=== PATIENT | female | born 1995 | race Caucasian/White ===

== ENCOUNTER 2020-11-24 07:54 | Emergency (ER) | payer OTHER, SELFPAY ==
--- NOTE | ~2020-11-24 | US_ITS ---
EXAMINATION: US OB <= 14 weeks fetus EXAM DATE: 11/24/2020 09:00 INDICATION: , vaginal bleeding. 2nd trimester. TECHNIQUE: Pelvic obstetrical transabdominal sonogram was performed by a technologist. There are mu ltiple grayscale and Doppler images available for interpretation. There are no earlier studies of th is gestation for comparison. FINDINGS: There is intrauterine gestation, pole in transverse presentation with heart rate conf irmed at 139 beats per minute. The 8.8 cm crown-rump length corresponds to estimated gestational age by ultrasound of 14 weeks 5 days, estimated date of confinement 05/20/2021. Difficult to confirm the location of the chorion and placenta, but there is no sonolucent to suggest retroplacental hemorrhag e. The ovaries were not identified. IMPRESSION: Live intrauterine gestation age by ultrasound 14 weeks 5 days. No sonographic evidence o f retroplacental hemorrhage. Reviewed, dictated and finalized at location A. SYSTEMS ADMINISTRATOR IMPRESSION: Live intrauterine gestation age by ultrasound 14 weeks 5 days. No sonographic evidence of retroplacental hemorrhage.
[2020-11-24 08:04] VITALS: BP 113/74; PULSE 82; RESP 18; TEMP 36.6; O2SAT 99
--- NOTE | 2020-11-24 08:08 | ED.PREGNANCY ---
HPI - General Chief complaint: Vaginal Bleeding Stated complaint: 14 wks with vag bleeding Time Seen by Provider: 11/24/20 07:59 Source: patient Mode of arrival: ambulatory Limitations: no limitations History of Present Illness HPI Narrative: This is a 25 year old female approximately 14 weeks GA who presents for evaluation of abnormal vaginal bleeding. She woke up this morning and she noticed blood in her underwear. She also noticed dark blood in the toilet when she went to the restroom. she denies passing clots. She denies abdominal pain or cramping and she does reports some mild lower back pain. She has some nausea and vomiting during her . She reports she had an US done yesterday which showed 1 IUP. She takes aspirin 81 mg. Related Data Home Medications Medication Instructions Recorded Confirmed albuterol sulfate [ProAir HFA] 1 inh INHALATION QID PRN 10/21/19 10/21/19 bupropion HCl 150 mg PO QAM 10/21/19 10/21/19 ergocalciferol (vitamin D2) 50,000 unit PO 2XW 10/21/19 10/21/19 levonorgestrel-ethinyl estrad 1 tablet PO DAILY 10/21/19 10/21/19 [Larissia] Allergies Allergy/AdvReac Type Severity Reaction Status Date / Time No Known Allergies Allergy Verified 11/24/20 08:00 Review of Systems Review of Systems: All systems reviewed & are unremarkable except as noted in HPI and below Constitutional: Constitutional: Denies chills and Denies fever(s) Gastrointestinal: Gastrointestinal: Denies abdominal pain, Reports nausea and Reports vomiting Genitourinary: Genitourinary: Reports abnormal vaginal bleeding Musculoskeletal: Musculoskeletal: Reports back pain [facility] Past Medical History Medical History (Updated 11/24/20 @ 10:19 by Maria Antonia Walls MD) GERD (gastroesophageal reflux disease) History of gestational diabetes Surgical History Surgical History H/O wisdom tooth extraction History of 05/2019 Family History Family History Grandparent Cerebrovascular accident Hypertension Lung cancer Malignant neoplasm of prostate Emphysema lung Gallbladder cancer Social History Social History Smoking status: Never smoker Alcohol intake: current Additional occupation/education comments: Sales Gender identity (if verbalized by the patient): Female Exam Const: General: no acute distress and alert Orientation/consciousness: patient oriented x3 Eyes: EOM: EOMs intact bilaterally Resp: Effort & Inspection: normal respiratory effort and no retractions Cardio: Rate: regular rate Rhythm: regular rhythm Heart sounds: no murmurs GI: GI Palp: Yes Soft to palpation, No Tenderness to palpation present (GI) and No Guarding due to palpation present (GI) Auscultation: normal bowel sounds : Other: dark brown clots in vaginal, Neuro: General: patient oriented x3, moves all extremities and CN's II-XI intact bilaterally Course Reevaluation(s) Reevaluation #1: I discussed ultrasound and discharge instruction with patient. Date: 11/24/20 Time: 10:16 Consultations Consultation #1: I spoke with Dr. Christine who is television repairer for Dr. Yan. She recommends patient to stop taking aspirin for 1 week and pelvic rest. Patient should follow up in 1 week. Date: 11/24/20 Time: 10:08 Vital Signs Vital signs: Vital Signs Temperature 97.9 F 11/24/20 08:04 Pulse Rate 82 11/24/20 08:04 Respiratory Rate 18 11/24/20 08:04 Blood Pressure 113/74 11/24/20 08:04 Pulse Oximetry 99 11/24/20 08:04 Temperature 97.9 F 11/24/20 08:04 Pulse Rate 75 11/24/20 10:28 Respiratory Rate 18 11/24/20 10:28 Blood Pressure 126/67 11/24/20 10:28 Pulse Oximetry 99 11/24/20 10:28 MDM - OB/Uterine Contractions Lab Data Attestation: I reviewed the patient's lab resul
[2020-11-24 08:32] LABS: Basophils Percent Auto 0.3 % (0.2-1.2); Eosinophils Absolute Auto 0.2 K/mm3 (0-0.3); Hematocrit 38.2 % (37.0-47.0); Immature Granulocyte Absolute 0.02 K/mm3 (0.00-0.031); Immature Granulocyte Percent A 0.3 % (0-0.5); Lymphocytes Absolute Auto 2.24 K/mm3 (0.9-3.2); Lymphocytes Percent Auto 28.3 % (18.3-44.2); Mean Platelet Volume 11.7 fl (7.4-10.4); Monocytes Absolute Auto 0.4 K/mm3 (0.1-0.6); Monocytes Percent Auto 5.2 % (2.6-8.5); Neutrophils Absolute Auto 5.1 K/mm3 (1.3-6.7); Neutrophils Percent Auto 63.9 % (45.5-73.1); Platelet Count Result 234 k/mm3 (150-375); Red Blood Count 4.34 M/mm3 (4.2-5.4); Red Cell Distribution Width 12.4 % (11.5-14.5); White Blood Count 7.9 K/mm3 (4.5-10.0)
[2020-11-24 08:36] LABS: Add Urine Microscopic? YES; Appearance Urine Cloudy (Clear); Bacteria Urine Trace /hpf; Bilirubin Urine Negative (Negative); Blood Urine 3+ (Negative); Color Urine Yellow (Yellow); Glucose Urine UA Negative (Negative); Ketones Urine Negative (Negative); Leukocyte Esterase Ur Trace LEU/UL (Negative); Mucus Urine Heavy /lpf; Nitrate Urine Negative (Negative); Protein Urine 1+ mg/dL (Negative); Squamous Epithelial Cell Urine Many /hpf (Few); Urobilinogen Urine Negative mg/dL (<2.0)
[2020-11-24 10:28] VITALS: BP 126/67; PULSE 75; RESP 18; O2SAT 99
== END 2020-11-24 10:33 | disposition home or self-care (01) ==
PROVIDERS: Emergency Provider General Practice
DX: O20.9 Hemorrhage in early pregnancy, unspecified (principal); O99.612 Diseases of the digestive system complicating pregnancy, second trimester; K21.9 Gastro-esophageal reflux disease without esophagitis; Z79.82 Long term (current) use of aspirin; Z3A.14 14 weeks gestation of pregnancy; R82.998 Other abnormal findings in urine
CPT/HCPCS: 36415; 76801; 81001; 84702; 85025; 85461; 87077; 87086; 87088; 99284

== ENCOUNTER → 2020-12-28 15:55 | Outpatient (CLI) | payer OTHER, SELFPAY ==
--- NOTE | ~2020-12-28 | US_ITS ---
EXAMINATION: US OB >= 14 weeks Fetus DATE: 12/28/2020 16:33 INDICATION: Second trimester anatomic survey TECHNIQUE: Real-time ultrasound of the pelvis was performed. COMPARISON: 11/24/2020 FINDINGS: There is a single living fetus in breech presentation. The placenta is posterior and covering the int ernal cervical os. heart rate is 147 beats per minute (bpm). cardiac activity and movement are noted. The amniotic fluid index is subjectively normal. The following anatomy was identified as normal: 4 chamber heart 3 vessel cord cord insertion kidneys urinary bladder stomach spine diaphragm ventricles cisterna magna cerebellum The following biometric data were obtained: Biparietal diameter (BPD): 4.3 cm; head circumference (HC): 16.3 cm; abdominal circumference (AC): 13 .6 cm; femur length (FL): 2.7 cm. These measurements are concordant. Estimated weight is 256 g +/- 38 g, which correlates with the 11th percentile when 05/20/2021 is used as estimated date of delivery. As single measurements, these parameters are each equal to the following estimated gestational ages w ith ranges of +/- 2 standard deviations: BPD: 19 weeks 1 days ( 17 weeks 3 days - 20 weeks 6 days). HC: 19 weeks 1 days ( 17 weeks 4 days - 20 weeks 4 days). AC: 19 weeks 1 days ( 17 weeks 0 days - 21 weeks 1 days). FL: 18 weeks 2 days ( 16 weeks 3 days - 20 weeks 1 days). estimated gestational age based solely on measurements from this exam is 19 weeks 0 days +/- 1 weeks 2 days. IMPRESSION: 1. Single living fetus in breech presentation. 2. Estimated weight is 256 g +/- 38 g, which correlates with the 11th percentile when 05/20/2021 is used as estimated date of delivery. 3. Complete placenta previa. Reviewed, dictated and finalized at location A. IMPRESSION: 1. Single living fetus in breech presentation. 2. Estimated weight is 256 g +/- 38 g, which correlates with the 11th per centile when 05/20/2021 is used as estimated date of delivery. 3. Complete placenta previa.
== END ==
PROVIDERS: Visit Provider Obstetrics & Gynecology Gynecology
DX: Z36.9 Encounter for antenatal screening, unspecified (principal); O44.02 Complete placenta previa NOS or without hemorrhage, second trimester
CPT/HCPCS: 76805

== ENCOUNTER → 2021-01-25 15:40 | Outpatient (CLI) | payer OTHER, SELFPAY ==
--- NOTE | ~2021-01-25 | US_ITS ---
. EXAMINATION: US OB limited DATE: 01/25/2021 16:01 INDICATION: Low lying placenta. Estimated gestational age of 22 weeks and 4 days. TECHNIQUE: Real-time ultrasound of the pelvis was performed. COMPARISON: Ultrasound 12/28/2020 FINDINGS: There is a single fetus in transverse lie. The placenta is covering the cervical os. heart rat e is 139 beats per minute (bpm). The amniotic fluid volume is subjectively normal. IMPRESSION: 1. Single living fetus in transverse lie. 2. Placenta previa. Reviewed, dictated and finalized at location A.
== END ==
PROVIDERS: Visit Provider Obstetrics & Gynecology Gynecology
DX: O44.40 Low lying placenta NOS or without hemorrhage, unspecified trimester (principal); Z3A.00 Weeks of gestation of pregnancy not specified
CPT/HCPCS: 76815

== ENCOUNTER → 2021-02-17 10:50 | Outpatient (CLI) | payer OTHER, SELFPAY ==
--- NOTE | ~2021-02-17 | US_ITS ---
EXAMINATION: US OB follow up DATE: 02/17/2021 11:41 INDICATION: Placenta previa. Expected size greater than expected for estimated gestational age at the transition from the second and third trimester . TECHNIQUE: Real-time ultrasound of the pelvis was performed. The interpreting radiologist was not pre sent for the study. COMPARISON: 01/25/2021 FINDINGS: There is a single living fetus in transverse lie. The placenta is posterior and is low lying extendin g at least the margin of if not across the region of the internal cervical os. heart rate is 13 6 beats per minute (bpm). The amniotic fluid index is 13.0 cm, which is normal. The following biometric data were obtained: BPD: 6.5 cm -> 26 weeks 3 days Head circumference: 24.1 cm -> 26 weeks 1 days Abdominal circumference: 23.2 cm -> 27 weeks 4 days Femur length: 4.9 cm -> 26 weeks 2 days These measurements are concordant. Head circumference to abdominal circumference ratio: 1.04 (normal range 1.05-1.22). Estimated weight: 1001 g (+/-) 150 g or 2 lbs. 3 oz. (+/-) 5 oz. IMPRESSION: 1. Single living fetus in transverse lie with heart rate of 136 bpm. 2. Normal amniotic fluid index of 13.0 cm. 3. Estimated weight is 40th percentile by Hadlock criteria when 05/20/2021 is used as the estima anh date of delivery (PATRICK). Please correlate with clinical information or earlier ultrasounds for mos t accurate PATRICK. 4. Posterior placenta which continues to appear low-lying with the inferior margin extending at least to the margin of if not across the region of the internal cervical os. Reviewed, dictated and finalized at location A. IMPRESSION: 1. Single living fetus in transverse lie with heart rate of 136 bpm. 2. Normal amniotic fluid index of 13.0 cm. 3. Estimated weight is 40th percentile by Hadlock criteria when 05/20/2021 is used as the estimated date of delivery (PATRICK). Please correlate with clinica l information or earlier ultrasounds for most accurate PATRICK. 4. Posterior placenta which continues to appear low-lying with the inferior mar gin extending at least to the margin of if not across the region of the interna l cervical os.
== END ==
PROVIDERS: Visit Provider Nurse Practitioner
DX: O36.63X0 Maternal care for excessive fetal growth, third trimester, not applicable or unspecified (principal); Z3A.00 Weeks of gestation of pregnancy not specified
CPT/HCPCS: 76816

== ENCOUNTER → 2021-03-19 10:55 | Outpatient (CLI) | payer OTHER, SELFPAY ==
--- NOTE | ~2021-03-19 | US_ITS ---
US OB limited 03/19/2021 11:19 Indication: Low lying placenta Procedure: High-resolution Limited obstetrical ultrasound Comparison: 02/17/2021 Findings: There is a single living intrauterine in breech presentation. heart rate is 127 BPM. Amniotic fluid is subjectively normal. Placenta is posterior measuring 0.7 cm to the cervix . Impression: 1: Low-lying posterior placenta measuring 0.7 cm to the cervix. Reviewed, dictated and finalized at location B. Impression: 1: Low-lying posterior placenta measuring 0.7 cm to the cervix.
== END ==
PROVIDERS: Visit Provider Obstetrics & Gynecology Gynecology
DX: O44.10 Complete placenta previa with hemorrhage, unspecified trimester (principal); Z3A.00 Weeks of gestation of pregnancy not specified
CPT/HCPCS: 76815

== ENCOUNTER → 2021-04-12 10:58 | Outpatient (CLI) | payer OTHER, SELFPAY ==
--- NOTE | ~2021-04-12 | US_ITS ---
EXAMINATION: US OB limited DATE: 04/12/2021 11:24 INDICATION: Low-lying placenta, third trimester TECHNIQUE: Real-time ultrasound of the pelvis was performed. The interpreting radiologist was not pre sent for the study. COMPARISON: 03/19/2021 FINDINGS: There is a single living fetus in vertex presentation. The placenta is posterior and 1.7 cm from the internal cervical os. cardiac activity and movement are noted. heart rate is 138 beats per minute (bpm). The amniotic fluid index is subjectively normal. IMPRESSION: 1. Single living fetus in vertex presentation. 2. Persistent low-lying placenta. Reviewed, dictated and finalized at location B.
== END ==
PROVIDERS: Visit Provider Obstetrics & Gynecology
DX: O44.10 Complete placenta previa with hemorrhage, unspecified trimester (principal); Z3A.00 Weeks of gestation of pregnancy not specified
CPT/HCPCS: 76815

== ENCOUNTER 2021-05-20 10:43 | Outpatient (CLI) | payer OTHER, SELFPAY ==
[2021-05-20 11:52] LABS: Hematocrit 35.3 % (37.0-47.0); Hemoglobin 11.2 g/dL (12.0-15.0); Mean Corpuscular HGB Conc 31.7 g/dl (32-36); Mean Corpuscular Hemoglobin 28.6 pg (26-34); Mean Corpuscular Volume 90.3 fl (80-100); Mean Platelet Volume 11.8 fl (7.4-10.4); Platelet Count Result 163 k/mm3 (150-375); Red Blood Count 3.91 M/mm3 (4.2-5.4); Red Cell Distribution Width 14.2 % (11.5-14.5); White Blood Count 8.1 K/mm3 (4.5-10.0)
[2021-05-21 07:40] LABS: Rapid Plasma Reagin Non-Reactive (NonReactive)
== END 2021-05-20 10:44 | disposition home or self-care (01) ==
PROVIDERS: Visit Provider Obstetrics & Gynecology Gynecology
DX: Z34.93 Encounter for supervision of normal pregnancy, unspecified, third trimester (principal); Z3A.00 Weeks of gestation of pregnancy not specified
CPT/HCPCS: 36415; 85027; 86592; 86850; 86900; 86901

== ENCOUNTER 2021-05-21 05:22 | Inpatient (IN) | payer OTHER, SELFPAY ==
--- NOTE | 2021-04-28 14:56 | PC.NURSE ---
VERIFIED WITH OR SCHEDULE AND PATIENT--C/S ON 05/21/21 AT 0730 PATIENT GIVEN REQUISITION FOR LAB DRAW ON 05/20/21
--- NOTE | 2021-05-20 13:21 | PM.IMHP ---
H&P: HPI History of Present Illness Date/Time: 05/20/21 13:21 25 yo A1 @39 wks here for repeat csection. has been complicated by initial previa and persistent low placenta. labs. A+; HIV -: RPR-; HepBSAg -; GBS+; Rubella immune. Chief Complaint: scheduled csection Review of Systems Review of Systems: +FM; no bleeding; Rare contractions Musculoskeletal: Musculoskeletal: Reports back pain [facility] Past Medical History Medical History (Updated 05/20/21 @ 13:27 by Katlin Yan MD) Anxiety Asthma GERD (gastroesophageal reflux disease) History of gestational diabetes Surgical History Surgical History (Updated 05/20/21 @ 13:27 by Katlin Yan MD) H/O wisdom tooth extraction History of 05/2019 Family History Family History Grandparent Cerebrovascular accident Hypertension Lung cancer Malignant neoplasm of prostate Emphysema lung Gallbladder cancer Social History Social History Smoking status: Never smoker Alcohol intake: current Alcohol use details: Socially Substance use: never Additional occupation/education comments: Sales Gender identity (if verbalized by the patient): Female Spiritual care concerns: No Meds Home Medications and Allergies Home Medications Medication Instructions Recorded Confirmed Type albuterol sulfate [ProAir HFA] 1 inh INHALATION QID PRN 10/21/19 10/21/19 History ergocalciferol (vitamin D2) 50,000 unit PO WEEKLY 10/21/19 10/21/19 History ferrous sulfate 325 mg PO DAILY 04/28/21 04/28/21 History prenat.vits,gino,eby-hxdy-vzmwy 1 tablet PO DAILY 04/28/21 04/28/21 History [ #2] Allergies Allergy/AdvReac Type Severity Reaction Status Date / Time No Known Allergies Allergy Verified 04/28/21 14:40 Exam Const: General: healthy appearing and alert GI: Inspection: other (Gravid ) GI Palp: Yes Other GI palpation findings present (Fundal ht 44 cm; FHTs 140's) Extrem: General: pedal edema Assessment and Plan Assessment and plan (1) 39 weeks gestation of : Code(s): Z3A.39 - 39 weeks gestation of Status: Acute (2) History of : Code(s): Z98.891 - History of uterine scar from previous surgery Status: Acute Assessment and Plan: plan repeat LTCS
--- NOTE | 2021-05-20 13:27 | P.PNAN_ITS ---
Anes - Initial Pre Proc Eval Procedure: Operation Date: 05/21/21 07:30 Proposed Procedures p Repeat Section - Katlin Yan MD Date/Time: 05/20/21 13:27 Surgeon: Katlin Yan MD Pre Op Diagnosis: Repeat Patient Data Age: 25 Gender: F Height: Weight: Allergies Allergy/AdvReac Type Severity Reaction Status Date / Time No Known Allergies Allergy Verified 04/28/21 14:40 Home Medications Medication Instructions Recorded Confirmed Type albuterol sulfate [ProAir HFA] 1 inh INHALATION QID PRN 10/21/19 05/21/21 History ergocalciferol (vitamin D2) 50,000 unit PO WEEKLY 10/21/19 05/21/21 History ferrous sulfate 325 mg PO DAILY 04/28/21 05/21/21 History prenat.vits,gino,gff-mcah-vnwmn 1 tablet PO DAILY 04/28/21 05/21/21 History [ #2] Patient hx anesthesia problems: none Family hx anesthesia problems: none [facility] Past Medical History Medical History (Updated 05/20/21 @ 13:27 by Katlin Yan MD) Anxiety Asthma GERD (gastroesophageal reflux disease) History of gestational diabetes Surgical History Surgical History (Updated 05/20/21 @ 13:27 by Katlin Yan MD) H/O wisdom tooth extraction History of 05/2019 Family History Family History Grandparent Cerebrovascular accident Hypertension Lung cancer Malignant neoplasm of prostate Emphysema lung Gallbladder cancer Social History Social History Smoking status: Never smoker Alcohol intake: current Alcohol use details: Socially Substance use: never Additional occupation/education comments: Sales Gender identity (if verbalized by the patient): Female Spiritual care concerns: No Anes - Eval Final PreProcedure Day of Procedure 05/20/21 13:27 Patient weight: normal Heart: regular rate and rhythm Lungs: clear to auscultation and normal air movement Airway: Mallampati scale class III Neurological: alert and oriented Last oral intake: >/= 8 hours ASA classification: III Emergent: no Anesthetic plan: proceed Anesthesia type and monitoring: regional spinal and standard monitoring Informed Consent: The patient's anesthetic plan and its attendant risks and benefits were discussed with the patient/family/POA. Questions were solicited and answers provided to the satisfaction of the patient/family/POA.
[2021-05-21] VITALS (52 sets, daily range): BP systolic 88–133; BP diastolic 42–109; PULSE 58–135; RESP 15–16; TEMP 36.1–36.6; O2SAT 98–100; BMI 45.3
--- NOTE | 2021-05-21 06:21 | LDADM ---
This patient, Frieda Mercer, was admitted to Labor/Delivery/Recovery 120 on 05/21/21 at 05:22. Plans for labor, pain management and were discussed with patient. Patient/family oriented to hospital policies and general routines including ID bracelet, bed and alarms, visiting hours, pain management, procedures, bathroom and other care routines, personal items, smoking policy, room service/diet and guest tray routines, security routines, and visiting hours. Patient/Family are encouraged to report perceived risks to care and to ask questions if they do not understand what they are told or what they should do. See OBIX for further documentation.
[2021-05-21] MEDS: LACTATED RINGERS 1,000 ML 125 ML IV CONT ×2 (06:45→11:21)
--- NOTE | 2021-05-21 07:16 | WPDHPUPDATE1 ---
History and Physical Update Update Date/Time: 05/21/21 07:16 History and Physical has been reviewed, including an updated exam of the patient. There are NO changes in the patient's condition. Risks, benefits, and alternatives have been discussed and questions answered. Patient agrees to proceed with procedure.
[2021-05-21] MEDS: ceFAZolin 2 GM/D5W 50 ML 2 GM/50 ML BAG IVPB (12:08)
[2021-05-21] MEDS: KETOROLAC 30 MG/ML VIAL (*BKC) IV PUSH ×2 (12:48→19:30)
--- NOTE | 2021-05-21 12:55 | P.OP_ITS ---
Procedure Note - Detailed Date of Procedure 05/21/21 Pre-op Diagnosis Repeat IUP 39 wk Post-op Diagnosis same Procedure Performed Repeat low transverse section Surgeon Katlin Yan MD Anesthesia spinal Findings female infant 8lb 11oz with Apgars 9 and 9 normal-appearing tubes ovaries and uterus Description of Procedure the patient is taken to the operating room and placed under spinal anesthesia in the dorsal supine position with a leftward tilt. She was prepped and draped in the usual sterile fashion.Once anesthesia was deemed adequate, a Pfannenstiel skin incision is made with a scalpel and carried down to the underlying layer of fascia which was nicked in the midline. The fascia is extended laterally using Clemens scissors. Ochsner was used to tent the fascia which was then dissected off using sharp and blunt dissection. The rectus muscles are in the midline and the peritoneum tented and entered with Metzenbaum. The vesicouterine peritoneum was tented and entered with Metzenbaum and extended laterally. The bladder flap was created using blunt traction.The Tommie O retractors placed. The lower uterine segment incised in a transverse fashion with a scalpel and extended laterally using blunt traction. Membranes are ruptured and clear fluid is noted. The infant is delivered from the assistant professor of art applied fundal pressure. The cord is clamped and cut the infant handed to the waiting nursery nurse. The uterine incision is grasped with Allis clamps at the left angle due to large blood vessel and ring forceps on the lower edge. The uterine incision was closed using 0 Monocryl in a running locked fashion. Same suture was used to imbricate. Good hemostasis is noted. The cul-de-sac and gutters are irrigated and the ovaries and tubes inspected. The uterine incision was again inspected and noted to be hemostatic. The Tommie O retractor was removed. Fascia was closed using 0 Vicryl in a running fashion. Subcutaneous tissues are irrigated made hemostatic using Bovie cautery. Skin is closed using 4-0 Vicryl in a subcuticular fashion. Dermaflex placed over the incision. Sponge, needle, and instrument counts are correct per the OR staff. Patient was given 3g of Ancef prior to incision. Estimated Blood Loss 625 Drains Yes (moore) Packing No Pathology none sent Complications No immediate complications Condition stable Disposition floor
--- NOTE | 2021-05-21 13:00 | PM.OBDSVD ---
DS: Admitting Diagnosis Admitting Diagnosis repeat LTCS 39 wk IUP DS: Discharge Diagnosis Discharge Diagnosis (1) History of : Code(s): Z98.891 - History of uterine scar from previous surgery Status: Acute (2) 39 weeks gestation of : Code(s): Z3A.39 - 39 weeks gestation of Status: Acute (3) delivery delivered: Code(s): O82 - Encounter for delivery without indication Status: Acute OB - DS: Summary OB Procedures : Ultrasound OB Procedures Intrapartum: low cervical, transverse OB Procedures: : None Peripartum Data Infant Delivery Method: Section Procedures: Procedures Operation Date: 05/21/21 07:30 <No data on this case meets the specified criteria> complications: none Status at Discharge Functional status at discharge: independent ambulation Overall status at discharge: patient is progressing back to baseline Time Spent with Patient Time attestation: Total time spent providing and/or coordinating discharge services: Discharge Plan Discharge Attending physician on discharge: Katlin Yan Discharging Clinician: Katlin Yan Anticipated Discharge Date/Time: 05/24/21 13:00 Patient Disposition: Home, Self-Care Activity: may shower, may drive after 2 weeks and pelvic rest Diet: regular Wound Care Instructions: incision open to air Patient Instructions: Antibiotic Form Stand Alone Forms: General Discharge Information Follow-up/Referrals: Katlin Yan MD [Physician] - 1 Week (and 6 wk) Discharge Medications: New hydrocodone-acetaminophen 5-325 mg Tablet 1 tablet PO Q3H PRN (Reason: Moderate Pain (4-6)) Qty: 30 RF: 0 norethindrone (contraceptive) 0.35 mg tablet 0.35 mg PO DAILY Qty: 84 RF: 3 Continued ergocalciferol (vitamin D2) 1,250 mcg (50,000 unit) capsule 50,000 unit PO WEEKLY RF: 0 albuterol sulfate [ProAir HFA] 90 mcg/actuation Hfa Aerosol Inhaler 1 inh INHALATION QID PRN (Reason: Shortness Of Breath Or Wheezing) RF: 0 ferrous sulfate 325 mg (65 mg iron) Tablet 325 mg PO DAILY RF: 0 #2 Tablet 1 tablet PO DAILY RF: 0 Date of admission: 05/21/21 05:22 Primary Care Provider: PHYSICIAN,AGRICULTURE SALES ACCOUNT MANAGER Admitting Provider: Katlin Yan Attending physician on admission: Katlin Yan Condition: Stable
--- NOTE | 2021-05-21 14:25 | PC.NURSE ---
Nursery RN requested assist with feeding. Mother voices concerns first had a tongue tie and unable to latch. is able to freely thrust tongue past gum ridge and flange both lips. Assisted mother will pillows for positioning/alignment due to C/S. Reviewed infant feeding cues, frequencies, duration of feedings, feeding elimination flow sheet, and signs of adequate intake. Demonstrated stimulation techniques to wake infant for feeding. Assisted with infant to breast. Reviewed positioning/alignment in football, holding breast in ?C? hold and guided asymmetrical latch on. Discussed rational for each. able to latch correctly. Reviewed signs of a correct latch, effective nursing and suck swallow ratio. nursed eagerly, with steady draws and frequent swallowing noted. Reviewed the difference of effective vs ineffective nursing. Suggested mother stimulate while feeding to increase stimulation, increase intake and to assist with maintaining deep latch. would slip to shallow latch, mother reports tenderness. Demonstrated how to adjust latch more deeply while feeding. Mother reports she can feel change in latch and has no tenderness. Nipple care reviewed of lanolin after feedings, warm compresses as needed.
[2021-05-21] MEDS: ONDANSETRON INJ 4 MG/2 ML VIAL IV PUSH (16:18)
[2021-05-21] MEDS: DEXTROSE 5%/0.45% SOD CHL 1,000 ML 125 ML IV CONT (19:31)
--- NOTE | 2021-05-21 20:00 | PC.NURSE ---
Patient's Pitocin was given but not ever scanned, the 500 ml bag was completed @ 1929.
[2021-05-21] MEDS: HYDROcodone/acetaminophen (*CRX) 5-325 MG TABLET 1 TAB PO (22:59)
[2021-05-22] MEDS: HYDROcodone/acetaminophen (*CRX) 5-325 MG TABLET 1 TAB PO ×4 (03:09→16:01)
[2021-05-22] MEDS: IBUPROFEN 600 MG TABLET PO ×3 (05:34→19:20)
[2021-05-22 05:35] VITALS: BP 99/62; PULSE 79; RESP 16; TEMP 36.1; O2SAT 100
[2021-05-22 06:17] LABS: Basophils Percent Auto 0.2 % (0.2-1.2); Eosinophils Absolute Auto 0.2 K/mm3 (0-0.3); Eosinophils Percent Auto 1.6 % (0-4.4); Hematocrit 32.1 % (37.0-47.0); Hemoglobin 10.2 g/dL (12.0-15.0); Immature Granulocyte Absolute 0.03 K/mm3 (0.00-0.031); Immature Granulocyte Percent A 0.3 % (0-0.5); Lymphocytes Absolute Auto 2.31 K/mm3 (0.9-3.2); Lymphocytes Percent Auto 24.5 % (18.3-44.2); Mean Corpuscular HGB Conc 31.8 g/dl (32-36); Mean Corpuscular Hemoglobin 28.3 pg (26-34); Mean Corpuscular Volume 88.9 fl (80-100); Monocytes Absolute Auto 0.9 K/mm3 (0.1-0.6); Monocytes Percent Auto 9.1 % (2.6-8.5); Neutrophils Absolute Auto 6.1 K/mm3 (1.3-6.7); Neutrophils Percent Auto 64.3 % (45.5-73.1); Platelet Count Result 156 k/mm3 (150-375); Red Blood Count 3.61 M/mm3 (4.2-5.4); Red Cell Distribution Width 13.8 % (11.5-14.5); White Blood Count 9.4 K/mm3 (4.5-10.0)
[2021-05-22] MEDS: DOCUSATE SODIUM 100 MG CAPSULE PO ×2 (07:44→16:01)
[2021-05-22] MEDS: MULTIVIT/MIN/PREN/FOL AC/IRON TABLET 1 TAB PO (07:44)
[2021-05-22 07:45] VITALS: BP 89/56; PULSE 83; RESP 18; TEMP 35.7
--- NOTE | 2021-05-22 11:13 | P.PNOB_ITS ---
OB - PN: Subj Subjective Date/time seen: 05/22/21 11:13 Patient comments: no complaints and pain well controlled baby status: doing well OB - PN: Obj Data Labs CBC & Chem 7: 05/22/21 06:01 Labs: Laboratory Results - last 24 hr 05/22/21 06:01 WBC 9.4 RBC 3.61 L Hgb 10.2 L Hct 32.1 L MCV 88.9 MCH 28.3 MCHC 31.8 L RDW 13.8 Plt Count 156 MPV 12.0 H Immature Gran % (Auto) 0.3 Neut % (Auto) 64.3 Lymph % (Auto) 24.5 [place] % (Auto) 9.1 H Eos % (Auto) 1.6 Baso % (Auto) 0.2 Lymph # (Auto) 2.31 [place] # (Auto) 0.9 H Eos # (Auto) 0.2 Baso # (Auto) 0.0 Abs Immat Gran (auto) 0.03 Absolute Neuts (auto) 6.1 Absolute Nucleated RBC 0.0 Nucleated RBC % 0.0 OB - PN A/P Plan day: 1 Plan: routine care Time Spent With Patient Time: Total time spent is greater than 50% in coordination of care (as documented) at patient's floor/unit and/or counseling patient: Exam : Bimanual exam- vagina & uterus: other (Uterus firm, nt @U)
[2021-05-22 11:15] VITALS: BP 99/60; PULSE 74; RESP 18; TEMP 35.9
--- NOTE | 2021-05-22 12:01 | WPDANLDPN2 ---
Anes-Prog Note L&D Date/Time: 05/22/21 12:01 Comfortable throughout: section Neuraxial method: spinal Epidural/Spinal procedure site: clean & non-tender Neuro status: Neuro function grossly intact. Cardiovascular status: normal Respiratory status: normal Airway patency: baseline Mental status: baseline Post-Op hydration status: normal Vital Signs: Last Vital Signs Temp 96.2 F L 05/22/21 07:45 Pulse 83 05/22/21 07:45 Resp 18 05/22/21 07:45 BP 89/56 L 05/22/21 07:45 Pulse Ox 100 05/22/21 05:35 Pain score (VAS): 3/10 I/O: Intake & Output 05/21/21 05/22/21 05/22/21 23:59 07:59 15:59 Intake Total 2150 1800 Output Total 1250 2200 Balance 900 -400 Post-procedural complaints: pruritis mild, no treatment Patient feedback: Patient satisfied with anesthetic care.
--- NOTE | 2021-05-22 12:02 | WPDANLDNPN2 ---
Anes-Prog Note L&D-Neuraxial Date/Time: 05/22/21 12:02 Neuraxial medications: intrathecal PF morphine Opiod-related complaints: pruritis mild, no treatment Patient feedback: Patient satisfied with post-operative pain management.
[2021-05-22 19:22] VITALS: BP 107/66; PULSE 89; RESP 16; TEMP 36.9; O2SAT 98
[2021-05-22] MEDS: HYDROcodone/acetaminophen (*CRX) 10-325 MG TABLET 1 TAB PO ×2 (19:22→22:24)
[2021-05-23] MEDS: HYDROcodone/acetaminophen (*CRX) 10-325 MG TABLET 1 TAB PO ×3 (03:43→12:35)
[2021-05-23] MEDS: IBUPROFEN 600 MG TABLET PO ×2 (03:43→12:35)
[2021-05-23 08:35] VITALS: BP 107/69; PULSE 93; RESP 18; TEMP 35.9
[2021-05-23] MEDS: DOCUSATE SODIUM 100 MG CAPSULE PO (08:41)
[2021-05-23] MEDS: MULTIVIT/MIN/PREN/FOL AC/IRON TABLET 1 TAB PO (08:41)
--- NOTE | 2021-05-23 09:11 | P.PNOB_ITS ---
OB - PN: Subj Subjective Date/time seen: 05/23/21 09:11 Patient comments: no complaints and pain well controlled baby status: doing well OB - PN: Obj Data Labs CBC & Chem 7: 05/22/21 06:01 OB - PN A/P Plan day: 1 Plan: routine care and discharge home Time Spent With Patient Time: Total time spent is greater than 50% in coordination of care (as docum ented) at patient's floor/unit and/or counseling patient: Exam Narrative: inc c/d/i : Bimanual exam- vagina & uterus: other (Uterus firm, nt @U)
--- NOTE | 2021-05-23 12:35 | PC.NURSE ---
Patient encouraged to view the discharge video Mother & Baby Care, The First Two Weeks . Patient was given the opportunity and encouraged to ask questions. Patient verbalized understanding of information shared and has been given the mother/baby guide for home reference.
[2021-05-24 07:54] VITALS: BP 102/63; PULSE 86; RESP 20; TEMP 37.1; O2SAT 99
== END 2021-05-23 12:50 | disposition home or self-care (01) | DRG 788 ==
LOC: ANHLDR 13:36 → ANHOB2 15:21
PROVIDERS: Admitting Provider Obstetrics & Gynecology Gynecology; Visit Provider Obstetrics & Gynecology Gynecology
PROC: 10D00Z1 Extraction of Products of Conception, Low, Open Approach (ICD-10-PCS; CPT 59514; principal; 2021-05-21 07:30)
DX: O34.211 Maternal care for low transverse scar from previous cesarean delivery (principal); Z37.0 Single live birth; Z3A.39 39 weeks gestation of pregnancy; O99.824 Streptococcus B carrier state complicating childbirth; O99.344 Other mental disorders complicating childbirth; F41.9 Anxiety disorder, unspecified; O99.62 Diseases of the digestive system complicating childbirth; K21.9 Gastro-esophageal reflux disease without esophagitis; O99.52 Diseases of the respiratory system complicating childbirth; J45.909 Unspecified asthma, uncomplicated; L29.9 Pruritus, unspecified; O99.73 Diseases of the skin and subcutaneous tissue complicating the puerperium
CPT/HCPCS: 36415; 85025; A9270; J0131; J0690; J1885; J2274; J2370; J2405; J2590; J7120

== ENCOUNTER → 2021-07-10 00:27 | Outpatient (CLI) | payer OTHER, SELFPAY ==
[2021-07-10 17:04] LABS: SARS-CoV-2 RNA PCR Negative
== END ==
PROVIDERS: Visit Provider Surgery
DX: Z01.812 Encounter for preprocedural laboratory examination (principal); Z20.822 Contact with and (suspected) exposure to COVID-19
CPT/HCPCS: C9803; U0003; U0005

== ENCOUNTER 2021-07-14 02:21 | Day surgery (SDC) | payer OTHER, SELFPAY ==
[2021-07-09 10:11] VITALS: BMI 38.5
--- NOTE | 2021-07-13 16:22 | PM.SD2 ---
Same Day Admit/Disch: HPI History of Present Illness Chief complaint: umbilical hernia Narrative: Frieda Mercer is a 25 year old female With a umbilical bulge that is painful and increasing in size for at least 2 years. She had a baby in late April. She does not plan to become in the future. She was seen in the office and found to have a tender reducible umbilical hernia. She is taken to surgery now for repair with mesh. [facility] Past Medical History Medical History Anxiety Asthma delivery delivered GERD (gastroesophageal reflux disease) History of gestational diabetes Surgical History Surgical History H/O wisdom tooth extraction History of 05/2019, 04/2021 Family History Family History Grandparent Cerebrovascular accident Hypertension Malignant neoplasm of prostate Other Gallbladder cancer Social History Social History Smoking status: Never smoker Alcohol intake: current Drinks per week: 2 Alcohol use details: Socially Substance use: never Substance use type: does not use Living arrangements: with family Additional occupation/education comments: Sales Gender identity (if verbalized by the patient): Female Spiritual care concerns: No Same Day Admit/Disch: Med Pre-admit Medications Home Medications Medication Instructions Recorded Confirmed Type ergocalciferol (vitamin D2) 50,000 unit PO WEEKLY 10/21/19 07/14/21 History ferrous sulfate 325 mg PO DAILY 04/28/21 07/14/21 History bupropion HCl 450 mg PO DAILY 07/09/21 07/14/21 History hydrocodone-acetaminophen 1 - 2 tablet PO Q6H PRN #12 tablet 07/14/21 Rx ketorolac 10 mg PO Q6H 4 Days #16 tablet 07/14/21 Rx Exam Const: General: cooperative, comfortable, no acute distress, alert and awake; No confusion Orientation/consciousness: No confusion HENMT: Head: normocephalic, atraumatic, no contusions and no scalp lesions Ears: external ears normal General nose exam: Normal external nose present Face and sinus: face symmetric and dry mucous membranes Mouth: Yes Normal oral and palatal mucosa present and Yes tongue normal Throat: posterior oropharynx normal Eyes: Conjunctivae: conjunctivae normal Sclera: sclerae normal Pupils: Equal, round and reactive pupils present EOM: EOMs intact bilaterally Neck: Neck: normal visual inspection, no lymphadenopathy, trachea midline, supple, nontender and no JVD Thyroid: abnormal thyroid Resp: Effort & Inspection: normal respiratory effort Auscultation: clear to auscultation bilaterally Cardio: Rate: regular rate Rhythm: regular rhythm GI: Inspection: normal to inspection and visible herniation ( Umbilical) GI Palp: Yes Soft to palpation, Yes Tenderness to palpation present (GI), No Hepatomegaly present, No Splenomegaly present and Yes Hernia present ( Umbilical hernia, upper margin, reducible, slightly tender.) Auscultation: normal bowel sounds and normoactive bowel sounds Skin: General skin exam: normal color, turgor normal and no erythema Lesions: no lesions Rashes: no rashes Trauma: no lacerations or abrasions Neuro: General: No confusion Cranial nerves: Yes Equal, round and reactive pupils present Motor exam (neuro): Motor abnormalities not present Extrem: General: no clubbing, cyanosis or edema and edema Psych: Affect: normal affect Thought process: Normal thought process present Insight: Good insight present (Psych) DS: Summary Time Spent with Patient Time attestation: Total time spent providing and/or coordinating discharge services: DS: Admitting Diagnosis Discharge Date 07/14/2021 Admitting Diagnosis reducible symptomatic umbilical hernia-- plan to proceed with umbilical hernia repair with underlay mesh as an outpati
[2021-07-14] MEDS: ACETAMINOPHEN 500 MG TABLET 1000 MG PO (06:30)
[2021-07-14] MEDS: LACTATED RINGERS 1,000 ML 30 ML IV CONT (06:40)
[2021-07-14 06:41] VITALS: BP 115/73; PULSE 81; TEMP 36.6; O2SAT 100
[2021-07-14] MEDS: KETOROLAC 15 MG/ML VIAL (*BKC) IV PUSH (06:42)
--- NOTE | 2021-07-14 06:47 | WPDANESEPPF ---
Anes - Initial Pre Proc Eval Procedure: Operation Date: 07/14/21 07:30 Proposed Procedures p Umbilical Hernia Repair with Mesh - Bib Schmidt MD Date/Time: 07/14/21 06:47 Surgeon: Bib Schmidt MD Pre Op Diagnosis: umbilical hernia Patient Data Age: 25 Gender: F Height: 1.55 m Weight: 93.4 kg Last Vital Signs Temp 36.6 C 07/14/21 06:41 Pulse 81 07/14/21 06:41 BP 115/73 07/14/21 06:41 Pulse Ox 100 07/14/21 06:41 Allergies Allergy/AdvReac Type Severity Reaction Status Date / Time No Known Allergies Allergy Verified 07/14/21 06:16 Home Medications Medication Instructions Recorded Confirmed Type ergocalciferol (vitamin D2) 50,000 unit PO WEEKLY 10/21/19 07/14/21 History ferrous sulfate 325 mg PO DAILY 04/28/21 07/14/21 History bupropion HCl 450 mg PO DAILY 07/09/21 07/14/21 History Patient hx anesthesia problems: none Family hx anesthesia problems: none Results Review: All pre-operative results and documents have been reviewed as part of the pre-operative evaluation. [facility] Past Medical History Medical History Anxiety Asthma delivery delivered GERD (gastroesophageal reflux disease) History of gestational diabetes Surgical History Surgical History H/O wisdom tooth extraction History of 05/2019, 04/2021 Family History Family History Grandparent Cerebrovascular accident Hypertension Malignant neoplasm of prostate Other Gallbladder cancer Social History Social History Smoking status: Never smoker Alcohol intake: current Drinks per week: 2 Alcohol use details: Socially Substance use: never Substance use type: does not use Living arrangements: with family Additional occupation/education comments: Sales Gender identity (if verbalized by the patient): Female Spiritual care concerns: No Anes - Eval Final PreProcedure Day of Procedure 07/14/21 06:47 Patient weight: obese Heart: regular rate and rhythm Lungs: clear to auscultation Airway: Mallampati scale class II Neurological: alert and oriented Last oral intake: >/= 8 hours ASA classification: II Emergent: no Anesthetic plan: proceed Anesthesia type and monitoring: general GIVS and standard monitoring Results Review: All pre-operative results and documents have been reviewed as part of the pre-operative evaluation. Informed Consent: The patient's anesthetic plan and its attendant risks and benefits were discussed with the patient/family/POA. Questions were solicited and answers provided to the satisfaction of the patient/family/POA.
--- NOTE | 2021-07-14 07:16 | WPDHPUPDATE1 ---
History and Physical Update Update Date/Time: 07/14/21 07:16 History and Physical has been reviewed, including an updated exam of the patient. There are NO changes in the patient's condition. Risks, benefits, and alternatives have been discussed and questions answered. Patient agrees to proceed with procedure.
[2021-07-14] MEDS: ceFAZolin 2 GM/D5W 50 ML 2 GM/50 ML BAG IVPB (07:29)
[2021-07-14] MEDS: LIDO 1%/EPINEPHRINE 1:100,000 50 ML VIAL INFILTRATE (08:00)
[2021-07-14 08:30] VITALS: BP 102/62; PULSE 84; RESP 16; O2SAT 98
[2021-07-14 08:50] VITALS: BP 102/85; PULSE 70; RESP 16; O2SAT 99
--- NOTE | 2021-07-14 08:57 | W.PM.PROC2 ---
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 Exam shows an umbilical hernia. She is taken to surgery now for repair with mesh Findings Showed not only 1 opening for umbilical hernia but also a 2nd hernia just cephalad to the 1st with a 4 mm skin bridge between the 2. Resultant defect was 1.8 cm x 0.5 cm. Description of Procedure Patient was taken to surgery and IV sedation was administered. The abdomen is prepped and draped. The proposed incision was marked on the skin just above the upper margin of the umbilicus. An ellipse was drawn on the skin that incorporated the lower aspect of a previous umbilical piercing scar. Incision was made after local was infiltrated. The ellipse included the lower portion of the scar. The skin was discarded. From there, we dissected through the subcutaneous and found the hernia sac. The hernia sac was dissected free from the umbilical skin and then dissected circumferentially down to the fascia. The remainder of the umbilical skin was dissected off the fascia and we undermined around the defect. Additional local was infiltrated into the fascia all around the hernia defect. As we further delineated the extent of the hernia, it was noted there were some additional smaller hernias just cephalad to the main defect. We dissected around these as well. The herniated contents for all of these hernias was then excised using the cautery. Cautery was used for hemostasis. The hernia sacs were discarded. I put a finger in the abdomen and checked for any anterior abdominal wall adhesions. None were noted. I excised any fascia that was redone in or attenuated such that it would not be helpful for the repair. I then chose a 6.6 cm Parietex tolowa dee-ni'. This was placed in the defect and position symmetrically. Cranial and caudal transfascial sutures were then placed using 0 Ethibond. Each of these sutures was placed in such a fashion that it would advance the edges of the hernia defect towards 1 another once they were tied. The sutures were then tied and had the desired effect. I then closed the hernia defect over the mesh. This was done with [id number] mattress sutures of 0 Ethibond. Each suture incorporated a bit of mesh as well. With the fascia closed, I infiltrated additional local all around the areas of repair. I then sutured the umbilical skin to the fascia with interrupted 3 0 Vicryl suture. Some other subcutaneous interrupted 3-0 Vicryl sutures were placed. The skin was then loosely approximated with 4-0 Vicryl subcuticular interrupted suture. The skin was finally closed with a running 4-0 Monocryl skin suture. The wound was dressed with Exofin surgical adhesive. The patient was awakened and taken to recovery in good condition. Sponge and needle counts were correct x2. Estimated Blood Loss 5 Drains No Packing No Pathology none sent Complications No immediate complications Condition stable Disposition same day
[2021-07-14] MEDS: ONDANSETRON INJ 4 MG/2 ML VIAL IV PUSH (09:01)
[2021-07-14 09:10] VITALS: BP 111/64; PULSE 76; RESP 16
== END 2021-07-14 09:28 | disposition home or self-care (01) ==
PROVIDERS: Visit Provider Surgery
PROC: (CPT 49585; principal; 2021-07-14 07:30)
DX: K42.9 Umbilical hernia without obstruction or gangrene (principal); J45.909 Unspecified asthma, uncomplicated; K21.9 Gastro-esophageal reflux disease without esophagitis; F41.9 Anxiety disorder, unspecified; E66.9 Obesity, unspecified; Z68.38 Body mass index [BMI] 38.0-38.9, adult
CPT/HCPCS: 49585; A9270; C1781; C9803; J0690; J1170; J1885; J2250; J2405; J2704; J3010; J7120; U0003; U0005